=== PATIENT | female | born 1985 | race African-American/Black ===

== ENCOUNTER 2016-08-08 22:00 | Emergency (ER) | payer OTHER ==
--- NOTE | ~2016-08-08 | CR170 ---
[facility] A Service of [facility] RADIOLOGY TEXT RESULTS PATIENT: NELSON AGUIRRE LOCATION: CFTX : 83 UNIT #: [id number] AGE: [address]: JESUS DEL RIO APRN SEX: F ORDER DR: [id number] [facility] [address] [place], [place] [address] [id number] E MR#: [id number] Acc #: [id number] NAME: NELSON AGUIRRE. : 1985 SEX: F STUDY DATE/TIME: 08/08/2016 23:51 UNIT: [facility] ROOM: STUDY DESCRIPTION: CR Knee 2 Views Rt Attending Physician: Jesus Del Rio Aprn Ordering Physician: Garth Martin D.O. Primary Care Physician: Primary Care Physician No MEDICAL IMAGING REPORT This report is preliminary unless electronic signature is present EXAM Right knee series 08/08/2016 HISTORY 31-year-old female in the ED complaining of new onset aching bilateral knee pain beginning earlier today. No reported acute injury. TECHNIQUE Three-view right knee series. FINDINGS The examination is negative. No fracture, dislocation, arthropathy or other osseous abnormality is demonstrated. No visible joint effusion. IMPRESSION Negative right knee series. Dictated by... Rudolph Bishop M.D. THIS IS AN ELECTRONICALLY VERIFIED REPORT Rudolph Bishop M.D. at 08/09/2016 9:55 PM RGW/yenni TD: 08/09/2016 10:13 JOB #: [id number] MEDICAL IMAGING REPORT Page 1 of 1 COPY
--- NOTE | ~2016-08-08 | CR169 ---
[facility] A Service of [facility] RADIOLOGY TEXT RESULTS PATIENT: NELSON AGUIRRE LOCATION: CFTX : 83 UNIT #: [id number] AGE: [address]: JESUS DEL RIO APRN SEX: F ORDER DR: [id number] [facility] [address] [place], [place] [address] [id number] E MR#: [id number] Acc #: [id number] NAME: NELSON AGUIRRE. : 1985 SEX: F STUDY DATE/TIME: 08/08/2016 23:54 UNIT: [facility] ROOM: STUDY DESCRIPTION: CR Knee 2 Views Lt Attending Physician: Jesus Del Rio Aprn Ordering Physician: Garth Martin D.O. Primary Care Physician: Primary Care Physician No MEDICAL IMAGING REPORT This report is preliminary unless electronic signature is present EXAM Left knee series 08/08/2016 HISTORY 31-year-old female in the ED complaining of new onset bilateral aching knee pain beginning earlier today. No reported acute traumatic injury. TECHNIQUE Two-view left knee series. FINDINGS The examination is negative. No fracture, dislocation, arthropathy or other osseous abnormality. No visible joint effusion. IMPRESSION Negative left knee series. Dictated by... Rudolph Bishop M.D. THIS IS AN ELECTRONICALLY VERIFIED REPORT Rudolph Bishop M.D. at 08/09/2016 9:55 PM RGW/yenni TD: 08/09/2016 10:14 JOB #: [id number] MEDICAL IMAGING REPORT Page 1 of 1 COPY
[~2016-08-08 22:00] MED LIST: MOTRIN600 MG PO; NAPROXEN PO; ZOFRANODT PO
== END 2016-08-09 01:05 | disposition home or self-care (01) ==
LOC: CED 22:00 → CFTX 22:00
DX: M25.561 Pain in right knee (principal); M25.562 Pain in left knee
CPT/HCPCS: 73560; 84703; 99284

== ENCOUNTER 2016-11-07 11:28 | Emergency (ER) | payer OTHER ==
[~2016-11-07] VITALS: Ht 162.6 cm; Wt 91.6 kg
--- NOTE | ~2016-11-07 | EKG ---
PATIENT: NELSON AGUIRRE UNIT #: [id number] Ventricular Rate: 79 BPM Atrial Rate: 79 BPM P-R Interval: 174 ms QRS Duration: 92 ms Q-T Interval: 370 ms QTC Calculation(Bezet): 424 ms P [place]: 68 degrees Calculated R [place]: 18 degrees Calculated T [place]: 20 degrees Diagnosis Line: Normal sinus rhythm Diagnosis Line: Normal ECG Diagnosis Line: When compared with ECG of 15-SEP-2012 04:30, Diagnosis Line: No significant change was found Diagnosis Line: Confirmed by LUIZ RIVERS MD ([id number]) on 11/09/2016 Diagnosis Line: 1:57:07 PM INTERPRETING MD: SILVESTRE HUTCHISON
[2016-11-07 13:11] LABS: BASOPHIL# 0.1 X10e3 (0-0.3); BASOPHIL% 0.8 % (0-2.5); EOSINOPHIL# 0.2 X10e3 (0-0.7); EOSINOPHIL% 1.8 % (0.0-7.0); HEMATOCRIT 35.2 % (35.0-45.0); HEMOGLOBIN 11.8 gm/dL (12.0-16.0); LYMPHOCYTE# 3.1 X10e3 (1.0-3.5); LYMPHOCYTE% 34.7 % (17.0-45.0); MEAN CELL VOLUME 83.2 FL (83-96); MEAN CORPUSCULAR HEMOGLOBIN 27.8 PG (28-34); MEAN CORPUSCULAR HGB CONC 33.4 g/dL (30-36); MEAN PLATELET VOLUME 9.1 FL (6.5-11.5); MONOCYTE# 0.7 X10e3 (0-1.0); MONOCYTE% 8.3 % (3.0-12.0); NEUTROPHIL# 4.8 X10e3 (1.5-7.1); NEUTROPHIL% 54.4 % (40-75); PLATELET COUNT 318 X10e3 (140-420); RED BLOOD COUNT 4.23 X10e (3.90-5.30); RED CELL DISTRIBUTION WIDTH 13.1 % (11.0-15.5); WHITE BLOOD COUNT 8.8 X10e3 (4.0-10.5)
[2016-11-07 13:20] LABS: DIFF IND NO
[2016-11-07 13:32] LABS: ALBUMIN SERUM 3.9 g/dL (3.5-5.0); BILIRUBIN, DIRECT 0.1 mg/dL (0.0-0.2); BILIRUBIN,INDIRECT 0.2 mg/dL (0.0-0.9); BILIRUBIN,TOTAL 0.3 mg/dL (0.2-2.0); CALCIUM SERUM 8.5 mg/dL (8.4-10.2); CREATININE SERUM 0.4 mg/dL (0.6-1.4); GLOM FILT RATE Estimated 159.8 mL/min (>60); POTASSIUM 3.7 mmol/L (3.5-5.1); PROTEIN TOTAL SERUM 7.9 g/dL (6.0-8.3)
[2016-11-07 13:39] LABS: URINE SOURCE CLEAN CATCH
[2016-11-07 13:45] LABS: URINE APPEARANCE CLOUDY; URINE BILIRUBIN NEG (NEG); URINE BLOOD NEG (NEG); URINE COLOR YELLOW; URINE GLUCOSE NEG (NEG); URINE KETONE TRACE (NEG); URINE LEUKOCYTE ESTERASE 1+ (NEG); URINE NITRATE NEG (NEG); URINE PROTEIN NEG (NEG); URINE SPECIFIC GRAVITY 1.033 (1.003-1.035)
[2016-11-07 13:48] LABS: CULTURE INDICATED? YES; URINE BACTERIA AUWI 1+ (NEGATIVE); URINE SQUAMOUS EPITHELIAL CELL MOD /[HPF]
[2016-11-07 13:57] LABS: URINE CRYSTALS CALCIUM OXALATE /[HPF]
[2016-11-07 13:58] LABS: URINE MUCUS PRESENT
== END 2016-11-07 14:44 | disposition home or self-care (01) ==
LOC: CED 11:28
PROVIDERS: Emergency Medicine
DX: O23.11 Infections of bladder in pregnancy, first trimester (principal)
CPT/HCPCS: 36415; 80048; 80076; 81003; 82947; 84443; 84703; 85025; 87086; 87651; 93005; 96361; 96374; 96375; 99284; J2765